=== PATIENT | male | born 2000 | race Hispanic/Latino ===

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

== ENCOUNTER 2021-02-13 19:00 | Emergency (ER) | payer BC, OTHER ==
[~2021-02-13] VITALS: Ht 167.6 cm; Wt 122.5 kg
[2021-02-13] MEDS ORDERED: CEFAZOLIN SOD 1 GM/NS 50ML 50 ML IV ONE (19:15)
[2021-02-13 19:31] LABS: BASOPHILS # (AUTO) 0.1 (0.0-0.1); BASOPHILS % 0.6 % (0.0-1.0); EOSINOPHILS # (AUTO) 0.5 (0.0-0.4); EOSINOPHILS % 3.6 % (0.0-6.0); HEMATOCRIT 39.9 % (38.2-49.6); HEMOGLOBIN 12.5 g/dL (14.0-18.0); LYMPHOCYTES # (AUTO) 3.5 (1.0-3.2); LYMPHOCYTES % 25.8 % (18.0-39.1); MEAN CORPUSCULAR HEMOGLOBIN 23.8 pg (28-32); MEAN CORPUSCULAR HGB CONC 31.3 g/dL (31-35); MONOCYTES # (AUTO) 1.3 (0.2-0.8); MONOCYTES % 9.5 % (4.4-11.3); NEUTROPHILS % 59.7 % (38.7-80.0); PLATELET COUNT 495 x10e3/uL (140-360); RED BLOOD COUNT 5.25 x10e6/uL (4.3-5.7); RED CELL DISTRIBUTION WIDTH 15.2 % (11.7-14.4)
[2021-02-13] MEDS ORDERED: DOXYCYCLINE HY100 MG PO (19:45)
[2021-02-13] MEDS ORDERED: BACTRIM DS TAB1 EACH PO (19:45)
[2021-02-13 19:50] LABS: ALANINE AMINOTRANSFERASE 52 IU/L (0-55); ALBUMIN 4.1 g/dL (3.5-5.0); ALKALINE PHOSPHATASE 86 IU/L (40-150); ANION GAP 15.8 mmol/L (8-16); BLOOD UREA NITROGEN 17 mg/dL (7-26); BUN/CREATININE RATIO 19 (6-25); CALCIUM 8.7 mg/dL (8.4-10.2); CARBON DIOXIDE 24 mmol/L (22-29); CHLORIDE 105 mmol/L (98-107); CREATININE, SERUM 0.89 mg/dL (0.72-1.25); EST GLOMERULAR FILTRATION RATE > 60 ML/MIN (60-); GLUCOSE 87 mg/dL (74-118); POTASSIUM 3.8 mmol/L (3.5-5.1); SODIUM 141 mmol/L (136-145)
[2021-02-13 20:04] VITALS: BP 132/75
== END 2021-02-13 20:05 | disposition home or self-care (01) ==
LOC: ER 19:25
DX: L03.115 Cellulitis of right lower limb (principal)
CPT/HCPCS: 36415; 80053; 85025; 99283; J0690

== ENCOUNTER 2022-06-29 05:15 | Emergency (ER) | payer BC, OTHER ==
[~2022-06-29] VITALS: Ht 167.6 cm; Wt 76.2 kg
[~2022-06-29 05:15] MED LIST changes: +BACTRIM DS TAB1 EACH PO; +DOXYCYCLINE HY100 MG PO
[2022-06-29] MEDS ORDERED: CLINDAMYCIN HC150 MG PO (05:33)
[2022-06-29] MEDS ORDERED: CLARITIN10 MG PO (05:35)
[2022-06-29] MEDS ORDERED: BACTRIM DS TAB1 EACH PO (05:35)
== END 2022-06-29 05:41 | disposition home or self-care (01) ==
LOC: ER 05:22
DX: L03.115 Cellulitis of right lower limb (principal)
CPT/HCPCS: 99282

== ENCOUNTER 2022-08-28 09:48 | Emergency (ER) | payer BC ==
[~2022-08-28] VITALS: Ht 167.6 cm; Wt 117.9 kg
[~2022-08-28 09:48] MED LIST changes: +CLARITIN10 MG PO; +CLINDAMYCIN HC150 MG PO
[2022-08-28] MEDS ORDERED: KETOROLAC TROMETHAMINE 30 MG/ML VIAL IV STA (10:15)
[2022-08-28] MEDS ORDERED: ONDANSETRON HCL INJ 2MG/ML 2ML 2 MG/ML VIAL IV STA (10:15)
[2022-08-28] MEDS ORDERED: SODIUM CHLORIDE 0.9% 1000ML 1,000 ML IV SCH (10:15)
[2022-08-28] MEDS ORDERED: ONDANSETRON HCL 4 MG ORAL DISINTEGRATING TAB ONE (10:18)
[2022-08-28 11:01] LABS: BASOPHILS # (AUTO) 0.1 (0.0-0.1); BASOPHILS % 0.4 % (0.0-1.0); EOSINOPHILS # (AUTO) 0.5 (0.0-0.4); EOSINOPHILS % 4.5 % (0.0-6.0); HEMATOCRIT 44.6 % (38.2-49.6); HEMOGLOBIN 13.4 g/dL (14.0-18.0); LYMPHOCYTES # (AUTO) 0.7 (1.0-3.2); LYMPHOCYTES % 5.9 % (18.0-39.1); MEAN CORPUSCULAR HEMOGLOBIN 23.9 pg (28-32); MEAN CORPUSCULAR VOLUME 79.5 fL (81-99); MONOCYTES # (AUTO) 1.3 (0.2-0.8); MONOCYTES % 10.7 % (4.4-11.3); NEUTROPHILS # (AUTO) 9.3 (2.1-6.9); NEUTROPHILS % 77.9 % (38.7-80.0); PLATELET COUNT 417 x10e3/uL (140-360); RED BLOOD COUNT 5.61 x10e6/uL (4.3-5.7); RED CELL DISTRIBUTION WIDTH 17.2 % (11.7-14.4)
[2022-08-28 11:13] LABS: ALBUMIN/GLOBULIN RATIO 0.9 (0.8-2.0); ANION GAP 15.6 mmol/L (8-16); CREATININE, SERUM 0.95 mg/dL (0.72-1.25); MAGNESIUM 1.7 MG/DL (1.3-2.1); POTASSIUM 4.6 mmol/L (3.5-5.1)
[2022-08-28 11:45] LABS: INFLUENZAE A&B ANTIGEN (RAPID) POSITIVE FLU A (NEGATIVE)
[2022-08-28 11:46] LABS: RESPIRATORY SYNC. VIRUS POSITIVE (NEGATIVE)
[2022-08-28] MEDS ORDERED: ONDANSETRON ODT4 MG PO (11:56)
== END 2022-08-28 17:56 | disposition home or self-care (01) ==
LOC: ER 09:59
DX: R50.9 Fever, unspecified (principal); J10.1 Influenza due to other identified influenza virus with other respiratory manifestations; R05.9 Cough, unspecified; R11.2 Nausea with vomiting, unspecified; Z20.822 Contact with and (suspected) exposure to COVID-19
CPT/HCPCS: 36415; 80053; 83735; 85025; 87400; 87420; 99283; J1885; J2405; J7030; Q0162; U0002

== ENCOUNTER 2023-03-07 12:31 | Inpatient (IN) | payer BC, OTHER ==
[~2023-03-07] VITALS: Ht 167.6 cm; Wt 117.9 kg
[~2023-03-07 12:31] MED LIST changes: +ONDANSETRON ODT4 MG PO
[2023-03-07] MEDS ORDERED: SODIUM CHLORIDE 0.9% 1000ML 1,000 ML IV SCH ×2 (13:00→14:15)
[2023-03-07] MEDS ORDERED: KETOROLAC TROMETHAMINE 30 MG/ML VIAL IV STA (13:01)
[2023-03-07] MEDS ORDERED: ACETAMINOPHEN 325 MG TAB PO ONE (13:15)
[2023-03-07 13:19] LABS: BASOPHILS # (AUTO) 0.1 (0.0-0.1); BASOPHILS % 0.3 % (0.0-1.0); EOSINOPHILS # (AUTO) 0.1 (0.0-0.4); EOSINOPHILS % 0.4 % (0.0-6.0); HEMATOCRIT 39.8 % (38.2-49.6); LYMPHOCYTES # (AUTO) 1.1 (1.0-3.2); LYMPHOCYTES % 5.1 % (18.0-39.1); MEAN CORPUSCULAR HEMOGLOBIN 25.6 pg (28-32); MEAN CORPUSCULAR HGB CONC 32.7 g/dL (31-35); MEAN CORPUSCULAR VOLUME 78.3 fL (81-99); MONOCYTES % 4.5 % (4.4-11.3); NEUTROPHILS # (AUTO) 19.4 (2.1-6.9); PLATELET COUNT 392 x10e3/uL (140-360); RED BLOOD COUNT 5.08 x10e6/uL (4.3-5.7); RED CELL DISTRIBUTION WIDTH 17.5 % (11.7-14.4)
[2023-03-07 13:40] LABS: ALBUMIN 3.8 g/dL (3.5-5.0); ALBUMIN/GLOBULIN RATIO 0.9 (0.8-2.0); ANION GAP 11.6 mmol/L (8-16); CALCIUM 9.2 mg/dL (8.4-10.2); CREATININE, SERUM 1.06 mg/dL (0.72-1.25); POTASSIUM 3.6 mmol/L (3.5-5.1)
[2023-03-07] MEDS ORDERED: Doxycycline IV 100 MG in SODIUM CHLORIDE 0.9% 100 ML IV STA (13:59)
[2023-03-07] MEDS ORDERED: PIPERACILLIN/TAZOBACTAM 4.5 GM in SODIUM CHLORIDE 0.9% 100 ML IV STA (13:59)
[2023-03-07] MEDS ORDERED: ONDANSETRON HCL INJ 2MG/ML 2ML 2 MG/ML VIAL IV PRN (14:15)
[2023-03-07] MEDS ORDERED: Morphine 4mg INJECTION 4 MG/ML INJ IV PRN (14:15)
[2023-03-07] MEDS ORDERED: ONDANSETRON HCL 4 MG ORAL DISINTEGRATING TAB PO PRN (14:15)
[2023-03-07 14:32] LABS: CHOL/HDL RATIO 2.1 (3.9-4.7)
[2023-03-07] MEDS: SODIUM CHLORIDE 0.9% 1000ML 1,000 ML IV SCH ×2 (15:19→23:10)
[2023-03-07] MEDS: ENOXAPARIN SOD INJ 40 MG/0.4 ML SYR SC SCH (15:26)
[2023-03-07 21:27] VITALS: BP 152/84; PULSE 87; RESP 18; TEMP 100.2; O2SAT 100
[2023-03-07 21:30] VITALS: BP 152/84; PULSE 87; RESP 18; TEMP 100.2; O2SAT 100
[2023-03-08] VITALS (8 sets, daily range): BP systolic 133–151; BP diastolic 63–89; PULSE 76–89; RESP 17–20; TEMP 97.8–99.3; O2SAT 98–100
[2023-03-08 05:01] LABS: BASOPHILS # (AUTO) 0.1 (0.0-0.1); BASOPHILS % 0.4 % (0.0-1.0); EOSINOPHILS % 0.3 % (0.0-6.0); HEMATOCRIT 37.5 % (38.2-49.6); HEMOGLOBIN 11.9 g/dL (14.0-18.0); LYMPHOCYTES # (AUTO) 1.7 (1.0-3.2); LYMPHOCYTES % 14.5 % (18.0-39.1); MEAN CORPUSCULAR HEMOGLOBIN 25.3 pg (28-32); MEAN CORPUSCULAR HGB CONC 31.7 g/dL (31-35); MEAN CORPUSCULAR VOLUME 79.8 fL (81-99); MONOCYTES # (AUTO) 1.4 (0.2-0.8); MONOCYTES % 11.9 % (4.4-11.3); NEUTROPHILS # (AUTO) 8.3 (2.1-6.9); NEUTROPHILS % 72.5 % (38.7-80.0); PLATELET COUNT 308 x10e3/uL (140-360)
[2023-03-08 05:29] LABS: ANION GAP 9.6 mmol/L (8-16); CALCIUM 8.1 mg/dL (8.4-10.2); CREATININE, SERUM 1.26 mg/dL (0.72-1.25); POTASSIUM 3.6 mmol/L (3.5-5.1)
[2023-03-08] MEDS: SODIUM CHLORIDE 0.9% 1000ML 1,000 ML IV SCH ×3 (05:35→21:22)
[2023-03-08] MEDS: LORATADINE 10 MG TAB PO SCH (08:58)
[2023-03-08] MEDS: Doxycycline IV 100 MG in SODIUM CHLORIDE 0.9% 100 ML IV SCH ×2 (12:16→21:22)
[2023-03-08] MEDS: ENOXAPARIN SOD INJ 40 MG/0.4 ML SYR SC SCH (18:05)
[2023-03-09] VITALS (8 sets, daily range): BP systolic 123–158; BP diastolic 62–94; PULSE 75–87; RESP 17–22; TEMP 97.5–100.2; O2SAT 99–100
[2023-03-09] MEDS: SODIUM CHLORIDE 0.9% 1000ML 1,000 ML IV SCH ×3 (05:10→20:48)
[2023-03-09 09:32] LABS: BASOPHILS % 0.4 % (0.0-1.0); EOSINOPHILS # (AUTO) 0.2 (0.0-0.4); EOSINOPHILS % 2.2 % (0.0-6.0); HEMATOCRIT 35.7 % (38.2-49.6); HEMOGLOBIN 11.2 g/dL (14.0-18.0); LYMPHOCYTES # (AUTO) 2.2 (1.0-3.2); LYMPHOCYTES % 22.3 % (18.0-39.1); MEAN CORPUSCULAR HEMOGLOBIN 25.2 pg (28-32); MEAN CORPUSCULAR HGB CONC 31.4 g/dL (31-35); MEAN CORPUSCULAR VOLUME 80.4 fL (81-99); MONOCYTES # (AUTO) 1.5 (0.2-0.8); MONOCYTES % 15.5 % (4.4-11.3); NEUTROPHILS # (AUTO) 5.9 (2.1-6.9); NEUTROPHILS % 59.2 % (38.7-80.0); PLATELET COUNT 318 x10e3/uL (140-360); RED BLOOD COUNT 4.44 x10e6/uL (4.3-5.7)
[2023-03-09] MEDS: Doxycycline IV 100 MG in SODIUM CHLORIDE 0.9% 100 ML IV SCH ×2 (09:43→20:48)
[2023-03-09] MEDS: LORATADINE 10 MG TAB PO SCH (09:43)
[2023-03-09] MEDS: ENOXAPARIN SOD INJ 40 MG/0.4 ML SYR SC SCH (17:24)
[2023-03-09] MEDS: TRIAMCINOLONE 0.1% OINTMENT 15 GM TUBE TP SCH (17:43)
[2023-03-10 01:07] VITALS: BP 132/82; PULSE 70; RESP 19; TEMP 98; O2SAT 100
[2023-03-10 05:42] VITALS: BP 134/88; PULSE 60; RESP 18; TEMP 97.2; O2SAT 100
[2023-03-10] MEDS: SODIUM CHLORIDE 0.9% 1000ML 1,000 ML IV SCH (05:42)
[2023-03-10] MEDS ORDERED: DOXYCYCLINE HY100 MG PO (06:49)
[2023-03-10] MEDS ORDERED: NEOSPORIN OIN28.3 GM TOP (06:49)
[2023-03-10] MEDS ORDERED: CEPHALEXIN500 MG PO (06:49)
[2023-03-10] MEDS: LORATADINE 10 MG TAB PO SCH (08:20)
[2023-03-10] MEDS: TRIAMCINOLONE 0.1% OINTMENT 15 GM TUBE TP SCH (08:20)
[2023-03-10] MEDS ORDERED: DOXYCYCLINE HYCLATE TABLET 100 MG TAB PO SCH (09:00)
== END 2023-03-10 08:20 | disposition home or self-care (01) | DRG 872 ==
LOC: ER 12:44 → ERHOLD 14:01 → MED/SURG2 20:28
PROVIDERS: ADMIT Internal Medicine; ATTEND Internal Medicine
DX: A41.9 Sepsis, unspecified organism (principal); L03.115 Cellulitis of right lower limb; E87.1 Hypo-osmolality and hyponatremia; Z68.41 Body mass index [BMI] 40.0-44.9, adult; R00.0 Tachycardia, unspecified; E66.01 Morbid (severe) obesity due to excess calories; Z87.891 Personal history of nicotine dependence; Z20.822 Contact with and (suspected) exposure to COVID-19
CPT/HCPCS: 0223U; 36415; 80048; 80053; 80061; 83036; 83605; 85025; 87040; 99252; 99284; J1650; J1885; J2270; J2405; J2543; J7030; J7050

== ENCOUNTER 2025-06-16 15:12 | Inpatient (IN) | payer BC, OTHER ==
[~2025-06-16] VITALS: Ht 167.6 cm; Wt 126.6 kg
[~2025-06-16 15:12] MED LIST changes: +CEPHALEXIN500 MG PO; +NEOSPORIN OIN28.3 GM TOP
[2025-06-16 16:02] VITALS: TEMP 103.1
[2025-06-16 16:32] LABS: BASOPHILS % 0.2 % (0.0-1.0); EOSINOPHILS % 0.0 % (0.0-6.0); LYMPHOCYTES % 5.9 % (18.0-39.1); MONOCYTES % 5.6 % (4.4-11.3); NEUTROPHILS % 87.7 % (38.7-80.0); RED CELL DISTRIBUTION WIDTH 14.5 % (11.7-14.4)
[2025-06-16 16:45] LABS: INR 1.05
[2025-06-16 16:52] LABS: EST GLOMERULAR FILTRATION RATE 105.0 ML/MIN (>=60)
[2025-06-16] MEDS: LINEZOLID 600 MG/D5W 300ML 300 ML IV SCH (17:28)
[2025-06-16] MEDS: ACETAMINOPHEN 1000 MG/100 ML IV ONE (17:28)
[2025-06-16] MEDS: SODIUM CHLORIDE 0.9% IV ONE (17:31)
[2025-06-16] MEDS ORDERED: SODIUM CHLORIDE 0.9% 1000ML 1,000 ML ONE (17:55)
[2025-06-16] MEDS ORDERED: IBUPROFEN 600 MG TAB PO PRN (18:15)
[2025-06-16] MEDS ORDERED: ONDANSETRON HCL INJ 2MG/ML 2ML 2 MG/ML VIAL IV PRN (18:15)
[2025-06-16 18:30] VITALS: PULSE 91; RESP 18
[2025-06-16] MEDS: HYDROCODONE/APAP 5MG-325MG TAB PO PRN (19:50)
[2025-06-16 20:32] LABS: LEUKOCYTE ESTERASE ,URINE NEGATIVE (NEGATIVE); PROTEIN,URINE DIPSTICK TRACE (NEGATIVE); URINE UROBILINOGEN 0.2 mg/dL (0.2 - 1)
[2025-06-16 20:44] LABS: WBC,URINE (MAN) 0-5 /HPF (0-5)
[2025-06-16] MEDS: SODIUM CHLORIDE 0.9% 1000ML 1,000 ML IV SCH (21:08)
[2025-06-16 22:07] VITALS: BP 116/67; PULSE 85; RESP 18; TEMP 98.4; O2SAT 98
[2025-06-17] VITALS (11 sets, daily range): BP systolic 111–151; BP diastolic 64–85; PULSE 65–111; RESP 16–26; TEMP 97.4–100; O2SAT 97–100
[2025-06-17 05:37] LABS: BASOPHILS % 0.3 % (0.0-1.0); EOSINOPHILS % 0.1 % (0.0-6.0); LYMPHOCYTES % 10.1 % (18.0-39.1); MONOCYTES % 7.9 % (4.4-11.3); NEUTROPHILS % 80.9 % (38.7-80.0); RED CELL DISTRIBUTION WIDTH 14.4 % (11.7-14.4)
[2025-06-17 06:17] LABS: EST GLOMERULAR FILTRATION RATE 105.0 ML/MIN (>=60)
[2025-06-18 04:00] VITALS: BP 142/79; PULSE 90; RESP 20; TEMP 100.2; O2SAT 100
[2025-06-18 08:00] VITALS: BP 142/79; PULSE 90; RESP 20; TEMP 100.2; O2SAT 100
[2025-06-18 08:01] VITALS: BP 128/80; PULSE 101; RESP 19; TEMP 100; O2SAT 99
[2025-06-18] MEDS: ACETAMINOPHEN 325 MG TAB PO PRN (08:16)
[2025-06-18 09:57] LABS: BASOPHILS % 0.2 % (0.0-1.0); EOSINOPHILS % 0.4 % (0.0-6.0); LYMPHOCYTES % 8.3 % (18.0-39.1); MONOCYTES % 8.6 % (4.4-11.3); NEUTROPHILS % 82.1 % (38.7-80.0); RED CELL DISTRIBUTION WIDTH 14.1 % (11.7-14.4)
[2025-06-18 10:16] LABS: EST GLOMERULAR FILTRATION RATE 99.0 ML/MIN (>=60)
[2025-06-18 11:30] VITALS: BP 105/49; PULSE 76; RESP 21; TEMP 98.9; O2SAT 99
[2025-06-18 15:55] VITALS: BP 139/81; PULSE 79; RESP 18; TEMP 99.2; O2SAT 100
[2025-06-18 20:00] VITALS: BP 144/77; PULSE 67; RESP 18; RESP 20; TEMP 98.8; O2SAT 100
[2025-06-19] VITALS: BP 137/79; PULSE 79; RESP 18; TEMP 98.2; O2SAT 100
[2025-06-19 04:00] VITALS: BP 109/59; PULSE 53; RESP 20; TEMP 97.6; O2SAT 100
[2025-06-19 08:22] VITALS: BP 122/73; PULSE 60; RESP 19; TEMP 97.6; O2SAT 99
[2025-06-19] MEDS ORDERED: ZYVOX600 MG PO (13:57)
== END 2025-06-19 17:30 | disposition home or self-care (01) | DRG 872 ==
LOC: ER 16:25 → ERHOLD 18:14 → MED/SURG 22:01
PROVIDERS: ADMIT Internal Medicine; ATTEND Internal Medicine
DX: A41.9 Sepsis, unspecified organism (principal); L03.115 Cellulitis of right lower limb; Z68.42 Body mass index [BMI] 45.0-49.9, adult; E66.01 Morbid (severe) obesity due to excess calories; D72.829 Elevated white blood cell count, unspecified; R11.10 Vomiting, unspecified; Z88.1 Allergy status to other antibiotic agents; Z91.041 Radiographic dye allergy status; Z91.013 Allergy to seafood; Z86.14 Personal history of Methicillin resistant Staphylococcus aureus infection
CPT/HCPCS: 36415; 71045; 80048; 80053; 81001; 83605; 85025; 85610; 85730; 87040; 87086; 93005; 93970; 99284; J2020; J2543; J7030